=== PATIENT | male | born 1940 | race Caucasian/White ===

== ENCOUNTER 2020-10-16 10:20 | Inpatient (IN) ==
[2020-10-16] MEDS ORDERED: Artificial Tears SOLN 15 ML BOTTLE BOTH EYES PRN (12:31)
[2020-10-16] MEDS ORDERED: Naloxone 0.4 MG/ML INJ IVP PRN (12:31)
[2020-10-16] MEDS ORDERED: Vancomycin 0 MG in 0.9 % Sodium Chloride 250 ML IVPB SCH (13:00)
[2020-10-16] MEDS ORDERED: *HR* Midazolam HCl 5 MG/5 ML VIAL IVP ONE (13:00)
[2020-10-16] MEDS: FentaNYL (PF) 1,000 MCG/100 ML IV.SOLN IVC SCH (13:41)
[2020-10-16] MEDS: Midazolam HCl 50 MG/100 ML IV.SOLN IVC SCH (13:42)
[2020-10-16] MEDS: Pantoprazole 40 MG VIAL IVP SCH (13:45)
[2020-10-16] MEDS ORDERED: Vancomycin 1,250 MG/262.5 ML IV.SOLN IVPB ONE (13:46)
[2020-10-16] MEDS ORDERED: Vancomycin 1,250 MG/262.5 ML IV.SOLN IVPB SCH (14:30)
[2020-10-16 15:01] LABS: ABG Base Excess -3 mEq/L (-2 to 3); ABG HCO3 19 mEq/L (21-27); ABG Oxygen Saturation 100 % (95-98); ABG PCO2 26 mmHg (35-45); ABG PH 7.47 pH Units (7.32-7.45); ABG PO2 256 mmHg (85-104); ABG TCO2 20 mEq/L (20-26); Blood Gas Modality ASSIST CONTROL; Blood Gas VT 450 cc
[2020-10-16 15:02] LABS: Adenovirus Not Detected (Not Detect); Bordetella Pertussis Not Detected (Not Detect); Chlamydophila pneumoniae Not Detected (Not Detect); Coronavirus 229E Not Detected (Not Detect); Coronavirus HKU1 Not Detected (Not Detect); Coronavirus NL63 Not Detected (Not Detect); Coronavirus OC43 Not Detected (Not Detect); Human Metapneumovirus Not Detected (Not Detect); Human Rhinovirus/Enterovirus Not Detected (Not Detect); Influenza A Subtype 2009 H1 Not Detected (Not Detect); Influenza B Not Detected (Not Detect); Mycoplasma pneumoniae Not Detected (Not Detect); Parainfluenza Virus 1 Not Detected (Not Detect); Parainfluenza Virus 2 Not Detected (Not Detect); Parainfluenza Virus 3 Not Detected (Not Detect); Parainfluenza Virus 4 Not Detected (Not Detect); Respiratory Syncytial Virus Not Detected (Not Detect); SARS-CoV-2 Not Detected (Not Detect)
[2020-10-16] MEDS ORDERED: Albuterol 2.5 MG/3 ML NEBULIZER IH PRN (16:07)
[2020-10-16] MEDS: Artificial Tears SOLN 15 ML BOTTLE BOTH EYES SCH ×3 (17:53→23:46)
[2020-10-16] MEDS: Piperacillin/Tazobactam 3.375 GM in 0.9 % Sodium Chloride Mini Bag 100 ML IVPB SCH ×2 (17:53→23:40)
[2020-10-16] MEDS: Doxycycline 100 MG in 0.9 % Sodium Chloride Mini Bag 100 ML IVPB SCH (17:54)
[2020-10-16] MEDS: Budesonide/Formoterol 160/4.5 1 PUFF INH IH SCH (19:48)
[2020-10-16] MEDS: Chlorhexidine Rinse 15 ML MOUTHWASH MM SCH (19:58)
[2020-10-16] MEDS: Metoprolol 100 MG TABLET GTUBE SCH (21:06)
[2020-10-17 03:40] LABS: Basophils % 0.3 %; Eosinophils # 0.1 K/mcL (0.0-0.6); Eosinophils % 0.6 %; Hematocrit 40.5 % (37.5-50.1); Hemoglobin 12.9 g/dL (12.9-16.9); Immature Granulocytes % 0.4 % (0-4); Lymphocytes # 3.1 K/mcL (0.6-4.6); Lymphocytes % 19.7 %; Mean Corpuscular HGB Conc 31.9 g/dL (31.6-35.5); Mean Corpuscular Hemoglobin 30.9 pg (28.0-33.3); Mean Corpuscular Volume 96.9 fL (83.0-100.0); Mean Platelet Volume 10.1 fL (9.4-12.4); Monocytes # 2.7 K/mcL (0.0-1.3); Neutrophils # 9.8 K/mcL (1.6-8.9); Platelet Count 224 K/mcL (140-400); Red Blood Count 4.18 M/mcL (4.19-5.50); Red Cell Distribution Width 14.6 % (11.5-14.5); White Blood Count 15.7 K/mcL (4.3-11.1)
[2020-10-17 04:00] LABS: BUN/Creatinine Ratio 17 (6-26); Blood Urea Nitrogen 16 mg/dL (8-23); Calcium 7.9 mg/dL (8.6-10.3); Carbon Dioxide 18 mEq/L (23-29); Chloride 107 mEq/L (98-107); Glucose 84 mg/dL (70-105); Osmolality,Calculated 280 (280-300); Potassium 4.4 mEq/L (3.5-5.1); Sodium 135 mEq/L (136-145); eGFR For African Americans > 60 (> 60); eGFR For Non-African Americans > 60 (> 60)
[2020-10-17] MEDS: Artificial Tears SOLN 15 ML BOTTLE BOTH EYES SCH ×5 (04:02→19:53)
[2020-10-17 04:55] LABS: ABG Base Excess -3 mEq/L (-2 to 3); ABG HCO3 20 mEq/L (21-27); ABG Oxygen Saturation 99 % (95-98); ABG PCO2 30 mmHg (35-45); ABG PH 7.44 pH Units (7.32-7.45); ABG PO2 136 mmHg (85-104); ABG TCO2 21 mEq/L (20-26); Blood Gas Modality ASSIST CONTROL; Blood Gas VT 400 cc
[2020-10-17] MEDS: Doxycycline 100 MG in 0.9 % Sodium Chloride Mini Bag 100 ML IVPB SCH ×2 (05:41→16:30)
[2020-10-17] MEDS: Budesonide/Formoterol 160/4.5 1 PUFF INH IH SCH ×2 (07:36→21:24)
[2020-10-17] MEDS ORDERED: Furosemide 40 MG/4 ML VIAL IVP ONE (08:10)
[2020-10-17] MEDS: Chlorhexidine Rinse 15 ML MOUTHWASH MM SCH ×2 (08:56→19:53)
[2020-10-17] MEDS: FentaNYL (PF) 1,000 MCG/100 ML IV.SOLN IVC SCH (08:56)
[2020-10-17] MEDS: Pantoprazole 40 MG VIAL IVP SCH (08:56)
[2020-10-17] MEDS: Piperacillin/Tazobactam 3.375 GM in 0.9 % Sodium Chloride Mini Bag 100 ML IVPB SCH ×2 (08:57→16:29)
[2020-10-17] MEDS: Metoprolol 100 MG TABLET GTUBE SCH ×2 (08:58→19:53)
[2020-10-17] MEDS ORDERED: lisinopriL 20 MG TABLET GTUBE SCH (09:00)
[2020-10-17] MEDS ORDERED: *HR* Atropine Sulfate 1 MG/10 ML SYRINGE ONE (12:05)
[2020-10-17] MEDS: Midazolam HCl 50 MG/100 ML IV.SOLN IVC SCH (13:16)
[2020-10-18] MEDS: Artificial Tears SOLN 15 ML BOTTLE BOTH EYES SCH ×7 (00:08→23:20)
[2020-10-18] MEDS: Piperacillin/Tazobactam 3.375 GM in 0.9 % Sodium Chloride Mini Bag 100 ML IVPB SCH ×4 (00:08→23:20)
[2020-10-18 05:13] LABS: ABG Base Excess -5 mEq/L (-2 to 3); ABG HCO3 19 mEq/L (21-27); ABG Oxygen Saturation 100 % (95-98); ABG PCO2 32 mmHg (35-45); ABG PH 7.38 pH Units (7.32-7.45); ABG PO2 189 mmHg (85-104); ABG TCO2 20 mEq/L (20-26); Blood Gas Modality AF; Blood Gas VT 400 cc
[2020-10-18] MEDS: FentaNYL (PF) 1,000 MCG/100 ML IV.SOLN IVC SCH (05:44)
[2020-10-18] MEDS: Doxycycline 100 MG in 0.9 % Sodium Chloride Mini Bag 100 ML IVPB SCH ×2 (06:07→17:37)
[2020-10-18 06:28] LABS: Basophils % 0.4 %; Eosinophils % 0.4 %; Hematocrit 39.9 % (37.5-50.1); Hemoglobin 12.8 g/dL (12.9-16.9); Immature Granulocytes % 0.8 % (0-4); Lymphocytes # 1.3 K/mcL (0.6-4.6); Lymphocytes % 13.6 %; Mean Corpuscular HGB Conc 32.1 g/dL (31.6-35.5); Mean Corpuscular Hemoglobin 30.6 pg (28.0-33.3); Mean Corpuscular Volume 95.5 fL (83.0-100.0); Mean Platelet Volume 9.7 fL (9.4-12.4); Monocytes # 0.9 K/mcL (0.0-1.3); Monocytes % 9.4 %; Neutrophils # 6.9 K/mcL (1.6-8.9); Platelet Count 240 K/mcL (140-400); Red Blood Count 4.18 M/mcL (4.19-5.50); Red Cell Distribution Width 14.8 % (11.5-14.5); Segmented Neutrophils % 75.4 %; White Blood Count 9.2 K/mcL (4.3-11.1)
[2020-10-18 06:45] LABS: Calcium 8.3 mg/dL (8.6-10.3); Potassium 3.7 mEq/L (3.5-5.1)
[2020-10-18] MEDS: Budesonide/Formoterol 160/4.5 1 PUFF INH IH SCH ×2 (07:44→21:06)
[2020-10-18] MEDS: Chlorhexidine Rinse 15 ML MOUTHWASH MM SCH ×2 (09:16→19:47)
[2020-10-18] MEDS: Pantoprazole 40 MG VIAL IVP SCH (09:31)
[2020-10-18] MEDS: Metoprolol 100 MG TABLET GTUBE SCH ×2 (09:31→19:47)
[2020-10-18] MEDS: Phenytoin Oral Susp 100 MG/4 ML UDC GTUBE SCH ×2 (12:49→17:37)
[2020-10-18] MEDS: *HR* Heparin 5,000 UNIT/ML VIAL SQ SCH ×2 (15:43→20:49)
[2020-10-18 17:05] LABS: Appearance of Body Fluid Cloudy (Clear); Volume of Body Fluid 13 mL
[2020-10-18] MEDS: Midazolam HCl 50 MG/100 ML IV.SOLN IVC SCH (20:48)
[2020-10-18] MEDS ORDERED: Furosemide 40 MG/4 ML VIAL IVP ONE (23:53)
[2020-10-19] MEDS: Phenytoin Oral Susp 100 MG/4 ML UDC GTUBE SCH ×3 (03:09→17:27)
[2020-10-19] MEDS: Artificial Tears SOLN 15 ML BOTTLE BOTH EYES SCH ×5 (03:09→19:52)
[2020-10-19 04:44] LABS: ABG Base Excess -3 mEq/L (-2 to 3); ABG HCO3 21 mEq/L (21-27); ABG Oxygen Saturation 99 % (95-98); ABG PCO2 33 mmHg (35-45); ABG PO2 130 mmHg (85-104); ABG TCO2 22 mEq/L (20-26); Blood Gas VT 400 cc
[2020-10-19] MEDS: *HR* Heparin 5,000 UNIT/ML VIAL SQ SCH ×3 (05:14→23:05)
[2020-10-19] MEDS: Doxycycline 100 MG in 0.9 % Sodium Chloride Mini Bag 100 ML IVPB SCH ×2 (05:15→16:19)
[2020-10-19] MEDS: Piperacillin/Tazobactam 3.375 GM in 0.9 % Sodium Chloride Mini Bag 100 ML IVPB SCH ×2 (07:52→17:27)
[2020-10-19] MEDS: Chlorhexidine Rinse 15 ML MOUTHWASH MM SCH ×2 (07:53→19:51)
[2020-10-19] MEDS: Metoprolol 100 MG TABLET GTUBE SCH ×3 (07:53→19:51)
[2020-10-19] MEDS: Pantoprazole 40 MG VIAL IVP SCH (07:53)
[2020-10-19] MEDS: Budesonide/Formoterol 160/4.5 1 PUFF INH IH SCH ×2 (08:02→21:22)
[2020-10-19] MEDS: Midazolam HCl 50 MG/100 ML IV.SOLN IVC SCH (11:06)
[2020-10-19] MEDS: FentaNYL (PF) 1,000 MCG/100 ML IV.SOLN IVC SCH ×2 (11:07→18:33)
[2020-10-19 12:08] LABS: Hematocrit 39.2 % (37.5-50.1); Hemoglobin 12.8 g/dL (12.9-16.9); Mean Corpuscular HGB Conc 32.7 g/dL (31.6-35.5); Mean Corpuscular Hemoglobin 30.3 pg (28.0-33.3); Mean Corpuscular Volume 92.7 fL (83.0-100.0); Mean Platelet Volume 10.1 fL (9.4-12.4); Platelet Count 235 K/mcL (140-400); Red Blood Count 4.23 M/mcL (4.19-5.50); Red Cell Distribution Width 14.6 % (11.5-14.5); White Blood Count 9.3 K/mcL (4.3-11.1)
[2020-10-19 12:19] LABS: BUN/Creatinine Ratio 27 (6-26); Blood Urea Nitrogen 33 mg/dL (8-23); Calcium 7.9 mg/dL (8.6-10.3); Carbon Dioxide 17 mEq/L (23-29); Chloride 112 mEq/L (98-107); Glucose 119 mg/dL (70-105); Osmolality,Calculated 298 (280-300); Potassium 4.1 mEq/L (3.5-5.1); Sodium 140 mEq/L (136-145); eGFR For African Americans > 60 (> 60); eGFR For Non-African Americans 57 (> 60)
[2020-10-19] MEDS: amLODIPine 5 MG TABLET GTUBE SCH (13:10)
[2020-10-19] MEDS ORDERED: QUEtiapine Fumarate 25 MG TABLET PO SCH (21:00)
[2020-10-20] MEDS: Artificial Tears SOLN 15 ML BOTTLE BOTH EYES SCH ×7 (00:19→23:03)
[2020-10-20] MEDS: Piperacillin/Tazobactam 3.375 GM in 0.9 % Sodium Chloride Mini Bag 100 ML IVPB SCH ×4 (00:23→23:02)
[2020-10-20] MEDS: Midazolam HCl 50 MG/100 ML IV.SOLN IVC SCH (01:00)
[2020-10-20] MEDS: Phenytoin Oral Susp 100 MG/4 ML UDC GTUBE SCH ×3 (04:12→17:58)
[2020-10-20] MEDS: FentaNYL (PF) 1,000 MCG/100 ML IV.SOLN IVC SCH (04:13)
[2020-10-20 04:30] LABS: ABG Base Excess -4 mEq/L (-2 to 3); ABG HCO3 21 mEq/L (21-27); ABG Oxygen Saturation 99 % (95-98); ABG PCO2 36 mmHg (35-45); ABG PH 7.38 pH Units (7.32-7.45); ABG PO2 132 mmHg (85-104); ABG TCO2 22 mEq/L (20-26); Blood Gas Modality AF; Blood Gas VT 400 cc
[2020-10-20] MEDS: *HR* Heparin 5,000 UNIT/ML VIAL SQ SCH ×3 (06:00→21:00)
[2020-10-20] MEDS: Doxycycline 100 MG in 0.9 % Sodium Chloride Mini Bag 100 ML IVPB SCH ×2 (06:00→17:57)
[2020-10-20 06:59] LABS: VBG Ionized Calcium 1.12 mmol/L (1.15-1.35)
[2020-10-20 06:59] LABS: Basophils # 0.1 K/mcL (0.0-0.2); Basophils % 0.6 %; Eosinophils # 0.6 K/mcL (0.0-0.6); Eosinophils % 6.9 %; Hematocrit 37.7 % (37.5-50.1); Immature Granulocytes % 0.8 % (0-4); Lymphocytes # 1.7 K/mcL (0.6-4.6); Lymphocytes % 20.9 %; Mean Corpuscular HGB Conc 31.8 g/dL (31.6-35.5); Mean Corpuscular Hemoglobin 29.6 pg (28.0-33.3); Mean Corpuscular Volume 93.1 fL (83.0-100.0); Mean Platelet Volume 9.8 fL (9.4-12.4); Monocytes # 0.9 K/mcL (0.0-1.3); Monocytes % 10.3 %; Platelet Count 251 K/mcL (140-400); Red Blood Count 4.05 M/mcL (4.19-5.50); Red Cell Distribution Width 14.9 % (11.5-14.5); Segmented Neutrophils % 60.5 %; White Blood Count 8.3 K/mcL (4.3-11.1)
[2020-10-20 07:23] LABS: BUN/Creatinine Ratio 30 (6-26); Blood Urea Nitrogen 34 mg/dL (8-23); Calcium 8.1 mg/dL (8.6-10.3); Carbon Dioxide 19 mEq/L (23-29); Chloride 112 mEq/L (98-107); Glucose 134 mg/dL (70-105); Magnesium 1.7 mg/dL (1.6-2.6); Osmolality,Calculated 302 (280-300); Phosphorous 3.8 mg/dL (2.7-4.5); Potassium 2.9 mEq/L (3.5-5.1); Sodium 141 mEq/L (136-145); eGFR For African Americans > 60 (> 60); eGFR For Non-African Americans > 60 (> 60)
[2020-10-20] MEDS: Budesonide/Formoterol 160/4.5 1 PUFF INH IH SCH ×2 (07:45→21:19)
[2020-10-20] MEDS: Chlorhexidine Rinse 15 ML MOUTHWASH MM SCH ×2 (08:54→20:01)
[2020-10-20] MEDS: amLODIPine 5 MG TABLET GTUBE SCH (08:54)
[2020-10-20] MEDS: Pantoprazole 40 MG VIAL IVP SCH (08:54)
[2020-10-20] MEDS: Metoprolol 100 MG TABLET GTUBE SCH ×2 (09:00→20:01)
[2020-10-20] MEDS: Potassium Chloride Elixir 20 MEQ/15 ML UDC GTUBE SCH ×2 (15:50→20:04)
[2020-10-20] MEDS: Haloperidol Oral Conc 10 MG/5 ML UDC GTUBE SCH ×2 (15:50→20:02)
[2020-10-20] MEDS: Furosemide 20 MG/2 ML VIAL IVP SCH (15:52)
[2020-10-20] MEDS: Aspirin 81 MG TAB.CHEW PO SCH (15:55)
[2020-10-20] MEDS: Nystatin SUSP 5 ML UD.LIQ PO SCH (21:00)
[2020-10-21] MEDS: Phenytoin Oral Susp 100 MG/4 ML UDC GTUBE SCH ×4 (02:02→19:43)
[2020-10-21] MEDS: Artificial Tears SOLN 15 ML BOTTLE BOTH EYES SCH ×6 (03:05→23:43)
[2020-10-21 04:14] LABS: ABG Base Excess -4 mEq/L (-2 to 3); ABG HCO3 21 mEq/L (21-27); ABG Oxygen Saturation 98 % (95-98); ABG PCO2 35 mmHg (35-45); ABG PH 7.38 pH Units (7.32-7.45); ABG PO2 105 mmHg (85-104); ABG TCO2 22 mEq/L (20-26); Blood Gas Modality AF; Blood Gas VT 400 cc
[2020-10-21 04:16] LABS: Hematocrit 35.2 % (37.5-50.1); Hemoglobin 11.2 g/dL (12.9-16.9); Mean Corpuscular HGB Conc 31.8 g/dL (31.6-35.5); Mean Corpuscular Hemoglobin 30.9 pg (28.0-33.3); Mean Platelet Volume 10.4 fL (9.4-12.4); Platelet Count 220 K/mcL (140-400); Red Blood Count 3.63 M/mcL (4.19-5.50); Red Cell Distribution Width 15.3 % (11.5-14.5); White Blood Count 8.8 K/mcL (4.3-11.1)
[2020-10-21 04:43] LABS: BUN/Creatinine Ratio 34 (6-26); Blood Urea Nitrogen 40 mg/dL (8-23); Calcium 7.8 mg/dL (8.6-10.3); Carbon Dioxide 19 mEq/L (23-29); Chloride 119 mEq/L (98-107); Glucose 154 mg/dL (70-105); Magnesium 1.6 mg/dL (1.6-2.6); Osmolality,Calculated 313 (280-300); Potassium 4.1 mEq/L (3.5-5.1); Sodium 145 mEq/L (136-145); eGFR For African Americans > 60 (> 60); eGFR For Non-African Americans > 60 (> 60)
[2020-10-21] MEDS: Doxycycline 100 MG in 0.9 % Sodium Chloride Mini Bag 100 ML IVPB SCH (05:00)
[2020-10-21] MEDS: *HR* Heparin 5,000 UNIT/ML VIAL SQ SCH ×3 (05:00→20:44)
[2020-10-21] MEDS: Aspirin 81 MG TAB.CHEW PO SCH (08:48)
[2020-10-21] MEDS: Chlorhexidine Rinse 15 ML MOUTHWASH MM SCH ×2 (08:48→20:43)
[2020-10-21] MEDS: Potassium Chloride Elixir 20 MEQ/15 ML UDC GTUBE SCH ×2 (08:49→20:45)
[2020-10-21] MEDS: Pantoprazole 40 MG VIAL IVP SCH (08:50)
[2020-10-21] MEDS: Metoprolol 100 MG TABLET GTUBE SCH ×2 (08:50→20:44)
[2020-10-21] MEDS: Furosemide 20 MG/2 ML VIAL IVP SCH (08:51)
[2020-10-21] MEDS: Haloperidol Oral Conc 10 MG/5 ML UDC GTUBE SCH (08:51)
[2020-10-21] MEDS: Piperacillin/Tazobactam 3.375 GM in 0.9 % Sodium Chloride Mini Bag 100 ML IVPB SCH ×3 (08:51→23:43)
[2020-10-21] MEDS: Nystatin SUSP 5 ML UD.LIQ PO SCH ×4 (08:51→20:42)
[2020-10-21] MEDS: Budesonide/Formoterol 160/4.5 1 PUFF INH IH SCH ×2 (10:47→20:11)
[2020-10-21] MEDS: amLODIPine 5 MG TABLET GTUBE SCH (12:51)
[2020-10-21] MEDS: Midazolam HCl 50 MG/100 ML IV.SOLN IVC SCH (19:43)
[2020-10-21] MEDS: FentaNYL (PF) 1,000 MCG/100 ML IV.SOLN IVC SCH (19:43)
[2020-10-22] MEDS: Phenytoin Oral Susp 100 MG/4 ML UDC GTUBE SCH ×3 (03:33→20:03)
[2020-10-22] MEDS: Artificial Tears SOLN 15 ML BOTTLE BOTH EYES SCH ×6 (03:34→23:54)
[2020-10-22 04:59] LABS: ABG Base Excess -5 mEq/L (-2 to 3); ABG HCO3 21 mEq/L (21-27); ABG Oxygen Saturation 98 % (95-98); ABG PCO2 40 mmHg (35-45); ABG PH 7.32 pH Units (7.32-7.45); ABG PO2 117 mmHg (85-104); ABG TCO2 22 mEq/L (20-26); Blood Gas VT 400 cc
[2020-10-22 05:12] LABS: Basophils % 0.5 %
[2020-10-22 05:14] LABS: Basophils # 0.1 K/mcL (0.0-0.2); Eosinophils # 0.8 K/mcL (0.0-0.6); Eosinophils % 5.1 %; Hemoglobin 13.6 g/dL (12.9-16.9); Immature Granulocytes % 0.5 % (0-4); Immature Platelets 4.4 % (1.1-6.1); Lymphocytes # 2.7 K/mcL (0.6-4.6); Lymphocytes % 17.6 %; Mean Corpuscular HGB Conc 31.6 g/dL (31.6-35.5); Mean Corpuscular Hemoglobin 29.9 pg (28.0-33.3); Mean Corpuscular Volume 94.5 fL (83.0-100.0); Mean Platelet Volume 11.2 fL (9.4-12.4); Monocytes # 1.5 K/mcL (0.0-1.3); Monocytes % 9.9 %; Neutrophils # 10.2 K/mcL (1.6-8.9); Platelet Count 141 K/mcL (140-400); Red Blood Count 4.55 M/mcL (4.19-5.50); Red Cell Distribution Width 15.9 % (11.5-14.5); Segmented Neutrophils % 66.4 %; White Blood Count 15.4 K/mcL (4.3-11.1)
[2020-10-22] MEDS: *HR* Heparin 5,000 UNIT/ML VIAL SQ SCH ×3 (05:19→21:23)
[2020-10-22] MEDS: Budesonide/Formoterol 160/4.5 1 PUFF INH IH SCH ×2 (07:00→19:44)
[2020-10-22] MEDS: Chlorhexidine Rinse 15 ML MOUTHWASH MM SCH ×2 (08:13→20:03)
[2020-10-22] MEDS: Piperacillin/Tazobactam 3.375 GM in 0.9 % Sodium Chloride Mini Bag 100 ML IVPB SCH ×3 (08:13→23:54)
[2020-10-22] MEDS: Pantoprazole 40 MG VIAL IVP SCH (08:15)
[2020-10-22] MEDS: Nystatin SUSP 5 ML UD.LIQ PO SCH ×4 (08:16→20:03)
[2020-10-22] MEDS: Furosemide 20 MG/2 ML VIAL IVP SCH (08:16)
[2020-10-22] MEDS: amLODIPine 5 MG TABLET GTUBE SCH (08:17)
[2020-10-22] MEDS: Metoprolol 100 MG TABLET GTUBE SCH ×2 (08:17→20:03)
[2020-10-22] MEDS: Aspirin 81 MG TAB.CHEW PO SCH (08:17)
[2020-10-22] MEDS: Potassium Chloride Elixir 20 MEQ/15 ML UDC GTUBE SCH ×3 (08:18→20:05)
[2020-10-22 08:23] LABS: BUN/Creatinine Ratio 36 (6-26); Blood Urea Nitrogen 43 mg/dL (8-23); Calcium 8.8 mg/dL (8.6-10.3); Carbon Dioxide 20 mEq/L (23-29); Chloride 118 mEq/L (98-107); Glucose 144 mg/dL (70-105); Osmolality,Calculated 315 (280-300); Potassium 4.5 mEq/L (3.5-5.1); Sodium 146 mEq/L (136-145); eGFR For African Americans > 60 (> 60); eGFR For Non-African Americans 58 (> 60)
[2020-10-22] MEDS: Midazolam HCl 50 MG/100 ML IV.SOLN IVC SCH (11:16)
[2020-10-23] MEDS: Phenytoin Oral Susp 100 MG/4 ML UDC GTUBE SCH ×3 (03:22→17:44)
[2020-10-23] MEDS: Artificial Tears SOLN 15 ML BOTTLE BOTH EYES SCH ×3 (03:22→09:02)
[2020-10-23 05:11] LABS: VBG Ionized Calcium 1.04 mmol/L (1.15-1.35)
[2020-10-23 05:30] LABS: BUN/Creatinine Ratio 42 (6-26); Blood Urea Nitrogen 47 mg/dL (8-23); Calcium 9.1 mg/dL (8.6-10.3); Carbon Dioxide 21 mEq/L (23-29); Chloride 121 mEq/L (98-107); Glucose 146 mg/dL (70-105); Magnesium 1.6 mg/dL (1.6-2.6); Osmolality,Calculated 325 (280-300); Phosphorous 2.8 mg/dL (2.7-4.5); Potassium 4.8 mEq/L (3.5-5.1); Sodium 150 mEq/L (136-145); eGFR For African Americans > 60 (> 60); eGFR For Non-African Americans > 60 (> 60)
[2020-10-23] MEDS: *HR* Heparin 5,000 UNIT/ML VIAL SQ SCH (05:42)
[2020-10-23] MEDS ORDERED: Calcium Gluconate 1gm/50mL 1 GM/50 ML BAG IVPB PRN (06:35)
[2020-10-23 06:40] LABS: Basophils # 0.1 K/mcL (0.0-0.2); Basophils % 0.5 %; Eosinophils # 0.2 K/mcL (0.0-0.6); Eosinophils % 1.4 %; Hematocrit 46.3 % (37.5-50.1); Hemoglobin 14.1 g/dL (12.9-16.9); Immature Granulocytes % 0.6 % (0-4); Lymphocytes # 2.3 K/mcL (0.6-4.6); Lymphocytes % 16.1 %; Mean Corpuscular HGB Conc 30.5 g/dL (31.6-35.5); Mean Corpuscular Hemoglobin 30.1 pg (28.0-33.3); Mean Corpuscular Volume 98.7 fL (83.0-100.0); Mean Platelet Volume 10.9 fL (9.4-12.4); Monocytes # 1.2 K/mcL (0.0-1.3); Monocytes % 8.3 %; Neutrophils # 10.6 K/mcL (1.6-8.9); Nucleated Red Blood Cells 0.1 /100 WBC (0); Platelet Count 254 K/mcL (140-400); Red Blood Count 4.69 M/mcL (4.19-5.50); Segmented Neutrophils % 73.1 %; White Blood Count 14.5 K/mcL (4.3-11.1)
[2020-10-23] MEDS: Chlorhexidine Rinse 15 ML MOUTHWASH MM SCH (07:30)
[2020-10-23] MEDS: Piperacillin/Tazobactam 3.375 GM in 0.9 % Sodium Chloride Mini Bag 100 ML IVPB SCH (07:35)
[2020-10-23] MEDS: amLODIPine 5 MG TABLET GTUBE SCH (07:36)
[2020-10-23] MEDS: Aspirin 81 MG TAB.CHEW PO SCH (07:36)
[2020-10-23] MEDS: Metoprolol 100 MG TABLET GTUBE SCH ×2 (07:36→22:00)
[2020-10-23] MEDS: Nystatin SUSP 5 ML UD.LIQ PO SCH ×2 (07:36→12:41)
[2020-10-23] MEDS: Pantoprazole 40 MG VIAL IVP SCH (07:37)
[2020-10-23] MEDS: Furosemide 20 MG/2 ML VIAL IVP SCH (07:37)
[2020-10-23] MEDS: Potassium Chloride Elixir 20 MEQ/15 ML UDC GTUBE SCH (07:38)
[2020-10-23] MEDS: Budesonide/Formoterol 160/4.5 1 PUFF INH IH SCH (08:24)
[2020-10-23] MEDS: Midazolam HCl 50 MG/100 ML IV.SOLN IVC SCH (09:02)
[2020-10-23] MEDS ORDERED: Naloxone 0.4 MG/ML INJ IVP PRN (13:48)
[2020-10-23] MEDS ORDERED: Piperacillin/Tazobactam 3.375 GM in 0.9 % Sodium Chloride Mini Bag 100 ML IVPB SCH (16:00)
[2020-10-23] MEDS: Budesonide Neb 0.5 MG/2 ML IH SCH (20:19)
[2020-10-23] MEDS: Albuterol 2.5 MG/3 ML NEBULIZER IH PRN (20:19)
[2020-10-23] MEDS ORDERED: Budesonide Neb 0.5 MG/2 ML IH SCH (22:00)
[2020-10-24 02:52] LABS: Basophils % 0.4 %; Eosinophils # 0.1 K/mcL (0.0-0.6); Hematocrit 45.6 % (37.5-50.1); Hemoglobin 14.3 g/dL (12.9-16.9); Immature Granulocytes % 0.5 % (0-4); Lymphocytes # 1.5 K/mcL (0.6-4.6); Lymphocytes % 14.3 %; Mean Corpuscular HGB Conc 31.4 g/dL (31.6-35.5); Mean Corpuscular Hemoglobin 30.5 pg (28.0-33.3); Mean Corpuscular Volume 97.2 fL (83.0-100.0); Mean Platelet Volume 10.7 fL (9.4-12.4); Monocytes # 0.8 K/mcL (0.0-1.3); Monocytes % 7.4 %; Platelet Count 283 K/mcL (140-400); Red Blood Count 4.69 M/mcL (4.19-5.50); Segmented Neutrophils % 76.4 %; White Blood Count 10.5 K/mcL (4.3-11.1)
[2020-10-24 03:12] LABS: Alanine Aminotransferase 12 Units/L (7-52); Albumin 2.8 g/dL (3.5-5.7); Albumin/Globulin Ratio 0.7 (1.1-2.2); Alkaline Phosphatase 110 Units/L (34-104); Aspartate Amino Transferase 17 Units/L (13-39); BUN/Creatinine Ratio 46 (6-26); Bilirubin,Total 0.4 mg/dL (0.3-1.0); Blood Urea Nitrogen 58 mg/dL (8-23); Calcium 9.1 mg/dL (8.6-10.3); Carbon Dioxide 24 mEq/L (23-29); Chloride 119 mEq/L (98-107); Globulin 4.2 g/dL (2.4-3.5); Glucose 120 mg/dL (70-105); Magnesium 1.7 mg/dL (1.6-2.6); Osmolality,Calculated 331 (280-300); Phosphorous 2.9 mg/dL (2.7-4.5); Potassium 4.4 mEq/L (3.5-5.1); Sodium 152 mEq/L (136-145); eGFR For African Americans > 60 (> 60); eGFR For Non-African Americans 56 (> 60)
[2020-10-24 03:25] LABS: VBG Ionized Calcium 1.12 mmol/L (1.15-1.35)
[2020-10-24] MEDS: Piperacillin/Tazobactam 3.375 GM in 0.9 % Sodium Chloride Mini Bag 100 ML IVPB SCH ×3 (04:27→21:26)
[2020-10-24] MEDS: Phenytoin Oral Susp 100 MG/4 ML UDC GTUBE SCH ×3 (04:27→18:29)
[2020-10-24] MEDS: Budesonide Neb 0.5 MG/2 ML IH SCH ×2 (07:40→20:06)
[2020-10-24] MEDS: Aspirin 81 MG TAB.CHEW PO SCH (09:57)
[2020-10-24] MEDS: *HR* Rivaroxaban 10 MG TABLET PO SCH (09:57)
[2020-10-24] MEDS: amLODIPine 5 MG TABLET GTUBE SCH (09:57)
[2020-10-24] MEDS: Metoprolol 100 MG TABLET GTUBE SCH ×2 (09:58→21:28)
[2020-10-24] MEDS: D5% in 0.2% NACL 500 ML IVC SCH ×3 (10:55→21:27)
[2020-10-24 12:31] LABS: BUN/Creatinine Ratio 52 (6-26); Blood Urea Nitrogen 58 mg/dL (8-23); Calcium 8.3 mg/dL (8.6-10.3); Carbon Dioxide 21 mEq/L (23-29); Chloride 119 mEq/L (98-107); Glucose 147 mg/dL (70-105); Osmolality,Calculated 325 (280-300); Potassium 4.4 mEq/L (3.5-5.1); Sodium 148 mEq/L (136-145); eGFR For African Americans > 60 (> 60); eGFR For Non-African Americans > 60 (> 60)
[2020-10-24] MEDS ORDERED: levoFLOXacin 750 MG/150 ML 750 MG/150 ML BAG IVPB SCH (18:00)
[2020-10-24] MEDS: Lactobacillus 1 EACH CAP.SPRINK GTUBE SCH (21:28)
[2020-10-25] MEDS: Piperacillin/Tazobactam 3.375 GM in 0.9 % Sodium Chloride Mini Bag 100 ML IVPB SCH (04:17)
[2020-10-25] MEDS: Phenytoin Oral Susp 100 MG/4 ML UDC GTUBE SCH ×3 (04:17→18:54)
[2020-10-25 05:13] LABS: Basophils % 0.3 %; Eosinophils # 0.5 K/mcL (0.0-0.6); Hematocrit 37.6 % (37.5-50.1); Immature Granulocytes % 0.3 % (0-4); Lymphocytes # 1.8 K/mcL (0.6-4.6); Mean Corpuscular HGB Conc 31.4 g/dL (31.6-35.5); Mean Corpuscular Hemoglobin 29.8 pg (28.0-33.3); Mean Corpuscular Volume 94.9 fL (83.0-100.0); Monocytes # 0.8 K/mcL (0.0-1.3); Monocytes % 8.1 %; Neutrophils # 6.4 K/mcL (1.6-8.9); Platelet Count 214 K/mcL (140-400); Red Blood Count 3.96 M/mcL (4.19-5.50); Red Cell Distribution Width 15.7 % (11.5-14.5); Segmented Neutrophils % 67.3 %; White Blood Count 9.5 K/mcL (4.3-11.1)
[2020-10-25 05:18] LABS: Hemoglobin 11.8 g/dL (12.9-16.9)
[2020-10-25 05:25] LABS: BUN/Creatinine Ratio 50 (6-26); Blood Urea Nitrogen 49 mg/dL (8-23); Carbon Dioxide 21 mEq/L (23-29); Chloride 117 mEq/L (98-107); Glucose 93 mg/dL (70-105); Magnesium 1.6 mg/dL (1.6-2.6); Osmolality,Calculated 317 (280-300); Phosphorous 2.7 mg/dL (2.7-4.5); Sodium 147 mEq/L (136-145); eGFR For African Americans > 60 (> 60); eGFR For Non-African Americans > 60 (> 60)
[2020-10-25 05:37] LABS: Thyroid Stimulating Hormone 0.366 mcIU/mL (0.340-5.600)
[2020-10-25] MEDS ORDERED: D5% in 0.2% NACL 500 ML IVC SCH (08:00)
[2020-10-25] MEDS: *HR* Rivaroxaban 10 MG TABLET PO SCH (09:41)
[2020-10-25] MEDS: Metoprolol 100 MG TABLET GTUBE SCH ×2 (09:42→22:20)
[2020-10-25] MEDS: Lactobacillus 1 EACH CAP.SPRINK GTUBE SCH ×2 (09:42→22:20)
[2020-10-25] MEDS: Aspirin 81 MG TAB.CHEW PO SCH (09:42)
[2020-10-25] MEDS: amLODIPine 5 MG TABLET GTUBE SCH (09:43)
[2020-10-25] MEDS: Budesonide Neb 0.5 MG/2 ML IH SCH ×2 (10:23→20:21)
[2020-10-25] MEDS ORDERED: E-Z-PAQUE (BARIUM SULF) SUSP 1 BOTTLE PO ONE (11:18)
[2020-10-25] MEDS ORDERED: E-Z-HD (BARIUM SULF) SUSPENSION PO ONE (11:18)
[2020-10-25 11:50] LABS: BUN/Creatinine Ratio 49 (6-26); Blood Urea Nitrogen 47 mg/dL (8-23); Calcium 7.9 mg/dL (8.6-10.3); Carbon Dioxide 23 mEq/L (23-29); Chloride 116 mEq/L (98-107); Glucose 132 mg/dL (70-105); Osmolality,Calculated 316 (280-300); Potassium 3.8 mEq/L (3.5-5.1); Sodium 146 mEq/L (136-145); eGFR For African Americans > 60 (> 60); eGFR For Non-African Americans > 60 (> 60)
[2020-10-25 21:34] LABS: BUN/Creatinine Ratio 46 (6-26); Blood Urea Nitrogen 45 mg/dL (8-23); Calcium 7.9 mg/dL (8.6-10.3); Carbon Dioxide 23 mEq/L (23-29); Chloride 116 mEq/L (98-107); Glucose 122 mg/dL (70-105); Osmolality,Calculated 309 (280-300); Potassium 3.7 mEq/L (3.5-5.1); Sodium 143 mEq/L (136-145); eGFR For African Americans > 60 (> 60); eGFR For Non-African Americans > 60 (> 60)
[2020-10-26] MEDS: Phenytoin Oral Susp 100 MG/4 ML UDC GTUBE SCH ×3 (03:52→18:12)
[2020-10-26 04:30] LABS: Basophils % 0.3 %; Eosinophils # 0.6 K/mcL (0.0-0.6); Eosinophils % 6.2 %; Hematocrit 36.3 % (37.5-50.1); Hemoglobin 11.2 g/dL (12.9-16.9); Immature Granulocytes % 0.5 % (0-4); Lymphocytes # 1.9 K/mcL (0.6-4.6); Lymphocytes % 20.9 %; Mean Corpuscular HGB Conc 30.9 g/dL (31.6-35.5); Mean Corpuscular Hemoglobin 29.9 pg (28.0-33.3); Mean Corpuscular Volume 96.8 fL (83.0-100.0); Monocytes # 0.7 K/mcL (0.0-1.3); Platelet Count 197 K/mcL (140-400); Red Blood Count 3.75 M/mcL (4.19-5.50); Red Cell Distribution Width 15.4 % (11.5-14.5); Segmented Neutrophils % 65.1 %; White Blood Count 9.2 K/mcL (4.3-11.1)
[2020-10-26 04:44] LABS: BUN/Creatinine Ratio 44 (6-26); Blood Urea Nitrogen 43 mg/dL (8-23); Calcium 8.2 mg/dL (8.6-10.3); Carbon Dioxide 22 mEq/L (23-29); Chloride 115 mEq/L (98-107); Glucose 93 mg/dL (70-105); Magnesium 1.6 mg/dL (1.6-2.6); Osmolality,Calculated 307 (280-300); Potassium 3.7 mEq/L (3.5-5.1); Sodium 143 mEq/L (136-145); eGFR For African Americans > 60 (> 60); eGFR For Non-African Americans > 60 (> 60)
[2020-10-26] MEDS: Budesonide Neb 0.5 MG/2 ML IH SCH ×2 (09:58→20:40)
[2020-10-26] MEDS: Aspirin 81 MG TAB.CHEW PO SCH (10:03)
[2020-10-26] MEDS: amLODIPine 5 MG TABLET GTUBE SCH (10:03)
[2020-10-26] MEDS: *HR* Rivaroxaban 10 MG TABLET PO SCH (10:04)
[2020-10-26] MEDS: Metoprolol 100 MG TABLET GTUBE SCH ×2 (10:04→20:57)
[2020-10-26] MEDS: Lactobacillus 1 EACH CAP.SPRINK GTUBE SCH ×2 (10:04→20:59)
[2020-10-27] MEDS: Phenytoin Oral Susp 100 MG/4 ML UDC GTUBE SCH ×3 (02:48→18:36)
[2020-10-27] MEDS: Budesonide Neb 0.5 MG/2 ML IH SCH ×2 (09:11→19:43)
[2020-10-27 09:46] LABS: Basophils % 0.3 %; Eosinophils # 0.4 K/mcL (0.0-0.6); Eosinophils % 5.5 %; Hematocrit 34.8 % (37.5-50.1); Hemoglobin 11.2 g/dL (12.9-16.9); Immature Granulocytes % 0.3 % (0-4); Lymphocytes # 1.4 K/mcL (0.6-4.6); Lymphocytes % 21.1 %; Mean Corpuscular HGB Conc 32.2 g/dL (31.6-35.5); Mean Corpuscular Hemoglobin 30.9 pg (28.0-33.3); Mean Corpuscular Volume 96.1 fL (83.0-100.0); Mean Platelet Volume 11.3 fL (9.4-12.4); Monocytes # 0.4 K/mcL (0.0-1.3); Monocytes % 6.8 %; Neutrophils # 4.3 K/mcL (1.6-8.9); Platelet Count 189 K/mcL (140-400); Red Blood Count 3.62 M/mcL (4.19-5.50); Red Cell Distribution Width 14.9 % (11.5-14.5); White Blood Count 6.5 K/mcL (4.3-11.1)
[2020-10-27] MEDS: *HR* Rivaroxaban 10 MG TABLET PO SCH (10:04)
[2020-10-27] MEDS: Lactobacillus 1 EACH CAP.SPRINK GTUBE SCH ×2 (10:04→23:33)
[2020-10-27] MEDS: Metoprolol 100 MG TABLET GTUBE SCH ×2 (10:04→23:33)
[2020-10-27] MEDS: Aspirin 81 MG TAB.CHEW PO SCH (10:04)
[2020-10-27 10:05] LABS: BUN/Creatinine Ratio 43 (6-26); Blood Urea Nitrogen 32 mg/dL (8-23); Carbon Dioxide 22 mEq/L (23-29); Chloride 110 mEq/L (98-107); Glucose 99 mg/dL (70-105); Magnesium 1.6 mg/dL (1.6-2.6); Osmolality,Calculated 293 (280-300); Phosphorous 3.1 mg/dL (2.7-4.5); Potassium 3.5 mEq/L (3.5-5.1); Sodium 138 mEq/L (136-145); eGFR For African Americans > 60 (> 60); eGFR For Non-African Americans > 60 (> 60)
[2020-10-27] MEDS: amLODIPine 5 MG TABLET GTUBE SCH (10:05)
[2020-10-28] MEDS: Phenytoin Oral Susp 100 MG/4 ML UDC GTUBE SCH ×3 (04:17→20:31)
[2020-10-28 06:07] LABS: Basophils % 0.3 %; Eosinophils # 0.3 K/mcL (0.0-0.6); Hematocrit 34.2 % (37.5-50.1); Hemoglobin 11.2 g/dL (12.9-16.9); Immature Granulocytes % 0.4 % (0-4); Lymphocytes # 1.4 K/mcL (0.6-4.6); Mean Corpuscular HGB Conc 32.7 g/dL (31.6-35.5); Mean Corpuscular Hemoglobin 31.1 pg (28.0-33.3); Mean Platelet Volume 11.3 fL (9.4-12.4); Monocytes # 0.5 K/mcL (0.0-1.3); Monocytes % 6.3 %; Neutrophils # 5.6 K/mcL (1.6-8.9); Platelet Count 235 K/mcL (140-400); Red Cell Distribution Width 14.7 % (11.5-14.5); White Blood Count 7.8 K/mcL (4.3-11.1)
[2020-10-28 06:26] LABS: BUN/Creatinine Ratio 33 (6-26); Blood Urea Nitrogen 26 mg/dL (8-23); Calcium 8.2 mg/dL (8.6-10.3); Carbon Dioxide 22 mEq/L (23-29); Chloride 109 mEq/L (98-107); Glucose 98 mg/dL (70-105); Magnesium 1.7 mg/dL (1.6-2.6); Osmolality,Calculated 289 (280-300); Potassium 3.5 mEq/L (3.5-5.1); Sodium 137 mEq/L (136-145); eGFR For African Americans > 60 (> 60); eGFR For Non-African Americans > 60 (> 60)
[2020-10-28] MEDS: Aspirin 81 MG TAB.CHEW PO SCH (10:23)
[2020-10-28] MEDS: Lactobacillus 1 EACH CAP.SPRINK GTUBE SCH ×2 (10:23→20:32)
[2020-10-28] MEDS: Metoprolol 100 MG TABLET GTUBE SCH ×2 (10:24→20:32)
[2020-10-28] MEDS: *HR* Rivaroxaban 10 MG TABLET PO SCH (10:27)
[2020-10-28] MEDS: amLODIPine 5 MG TABLET GTUBE SCH (10:27)
[2020-10-28] MEDS: Budesonide Neb 0.5 MG/2 ML IH SCH ×2 (11:14→22:25)
[2020-10-29] MEDS: Phenytoin Oral Susp 100 MG/4 ML UDC GTUBE SCH ×3 (03:35→20:38)
[2020-10-29 06:32] LABS: Basophils % 0.1 %; Eosinophils # 0.2 K/mcL (0.0-0.6); Eosinophils % 2.6 %; Hematocrit 37.2 % (37.5-50.1); Immature Granulocytes % 0.4 % (0-4); Lymphocytes # 1.2 K/mcL (0.6-4.6); Lymphocytes % 15.8 %; Mean Corpuscular HGB Conc 32.3 g/dL (31.6-35.5); Mean Corpuscular Hemoglobin 30.5 pg (28.0-33.3); Mean Corpuscular Volume 94.4 fL (83.0-100.0); Mean Platelet Volume 11.3 fL (9.4-12.4); Monocytes # 0.5 K/mcL (0.0-1.3); Monocytes % 7.2 %; Neutrophils # 5.4 K/mcL (1.6-8.9); Platelet Count 257 K/mcL (140-400); Red Blood Count 3.94 M/mcL (4.19-5.50); Red Cell Distribution Width 14.6 % (11.5-14.5); Segmented Neutrophils % 73.9 %; White Blood Count 7.3 K/mcL (4.3-11.1)
[2020-10-29 06:46] LABS: BUN/Creatinine Ratio 28 (6-26); Blood Urea Nitrogen 19 mg/dL (8-23); Calcium 8.4 mg/dL (8.6-10.3); Carbon Dioxide 20 mEq/L (23-29); Chloride 108 mEq/L (98-107); Glucose 74 mg/dL (70-105); Magnesium 1.7 mg/dL (1.6-2.6); Osmolality,Calculated 285 (280-300); Potassium 3.3 mEq/L (3.5-5.1); Sodium 137 mEq/L (136-145); eGFR For African Americans > 60 (> 60); eGFR For Non-African Americans > 60 (> 60)
[2020-10-29] MEDS: Budesonide Neb 0.5 MG/2 ML IH SCH ×2 (07:29→22:31)
[2020-10-29] MEDS ORDERED: Potassium Chloride Elixir 20 MEQ/15 ML UDC GTUBE ONE (07:39)
[2020-10-29] MEDS: amLODIPine 5 MG TABLET GTUBE SCH (11:08)
[2020-10-29] MEDS: Aspirin 81 MG TAB.CHEW PO SCH (11:08)
[2020-10-29] MEDS: *HR* Rivaroxaban 10 MG TABLET PO SCH (11:08)
[2020-10-29] MEDS: Lactobacillus 1 EACH CAP.SPRINK GTUBE SCH ×2 (11:09→20:38)
[2020-10-29] MEDS: Metoprolol 100 MG TABLET GTUBE SCH ×2 (11:09→20:38)
[2020-10-29] MEDS: Aspirin 81 MG TAB.CHEW GTUBE SCH (14:12)
[2020-10-29] MEDS: *HR* Rivaroxaban 10 MG TABLET GTUBE SCH (14:12)
[2020-10-29] MEDS: Nicotine 14 MG PATCH.TD24 TD SCH (14:56)
[2020-10-30] MEDS: Phenytoin Oral Susp 100 MG/4 ML UDC GTUBE SCH ×4 (03:12→20:33)
[2020-10-30 04:38] LABS: BUN/Creatinine Ratio 23 (6-26); Blood Urea Nitrogen 16 mg/dL (8-23); Calcium 8.2 mg/dL (8.6-10.3); Carbon Dioxide 21 mEq/L (23-29); Chloride 109 mEq/L (98-107); Glucose 95 mg/dL (70-105); Magnesium 1.7 mg/dL (1.6-2.6); Osmolality,Calculated 283 (280-300); Sodium 136 mEq/L (136-145); eGFR For African Americans > 60 (> 60); eGFR For Non-African Americans > 60 (> 60)
[2020-10-30 04:45] LABS: Basophils % 0.3 %; Eosinophils # 0.3 K/mcL (0.0-0.6); Eosinophils % 3.4 %; Hematocrit 37.2 % (37.5-50.1); Immature Granulocytes % 0.5 % (0-4); Lymphocytes # 1.3 K/mcL (0.6-4.6); Lymphocytes % 16.8 %; Mean Corpuscular HGB Conc 32.3 g/dL (31.6-35.5); Mean Corpuscular Hemoglobin 30.3 pg (28.0-33.3); Mean Corpuscular Volume 93.9 fL (83.0-100.0); Mean Platelet Volume 10.8 fL (9.4-12.4); Monocytes # 0.6 K/mcL (0.0-1.3); Monocytes % 8.1 %; Neutrophils # 5.4 K/mcL (1.6-8.9); Platelet Count 283 K/mcL (140-400); Red Blood Count 3.96 M/mcL (4.19-5.50); Red Cell Distribution Width 14.8 % (11.5-14.5); Segmented Neutrophils % 70.9 %; White Blood Count 7.6 K/mcL (4.3-11.1)
[2020-10-30] MEDS: Budesonide Neb 0.5 MG/2 ML IH SCH ×2 (07:36→19:58)
[2020-10-30] MEDS: *HR* Rivaroxaban 10 MG TABLET GTUBE SCH (08:56)
[2020-10-30] MEDS: Metoprolol 100 MG TABLET GTUBE SCH ×2 (08:57→20:32)
[2020-10-30] MEDS: amLODIPine 5 MG TABLET GTUBE SCH (08:57)
[2020-10-30] MEDS: Lactobacillus 1 EACH CAP.SPRINK GTUBE SCH ×2 (08:58→20:33)
[2020-10-30] MEDS: Nicotine 14 MG PATCH.TD24 TD SCH (08:58)
[2020-10-30] MEDS: Aspirin 81 MG TAB.CHEW GTUBE SCH (08:58)
[2020-10-31] MEDS: Phenytoin Oral Susp 100 MG/4 ML UDC GTUBE SCH ×4 (03:40→20:53)
[2020-10-31 05:24] LABS: White Blood Count 6.9 K/mcL (4.3-11.1)
[2020-10-31 05:25] LABS: Basophils % 0.4 %; Eosinophils # 0.3 K/mcL (0.0-0.6); Eosinophils % 4.1 %; Hematocrit 35.3 % (37.5-50.1); Hemoglobin 11.5 g/dL (12.9-16.9); Immature Granulocytes % 0.6 % (0-4); Lymphocytes # 1.3 K/mcL (0.6-4.6); Lymphocytes % 18.3 %; Mean Corpuscular HGB Conc 32.6 g/dL (31.6-35.5); Mean Corpuscular Hemoglobin 30.4 pg (28.0-33.3); Mean Corpuscular Volume 93.4 fL (83.0-100.0); Mean Platelet Volume 10.3 fL (9.4-12.4); Monocytes # 0.6 K/mcL (0.0-1.3); Monocytes % 8.1 %; Neutrophils # 4.7 K/mcL (1.6-8.9); Platelet Count 285 K/mcL (140-400); Red Blood Count 3.78 M/mcL (4.19-5.50); Red Cell Distribution Width 15.3 % (11.5-14.5); Segmented Neutrophils % 68.5 %
[2020-10-31 05:44] LABS: BUN/Creatinine Ratio 26 (6-26); Blood Urea Nitrogen 16 mg/dL (8-23); Calcium 7.6 mg/dL (8.6-10.3); Carbon Dioxide 22 mEq/L (23-29); Chloride 109 mEq/L (98-107); Glucose 93 mg/dL (70-105); Magnesium 1.8 mg/dL (1.6-2.6); Osmolality,Calculated 285 (280-300); Potassium 3.9 mEq/L (3.5-5.1); Sodium 137 mEq/L (136-145); eGFR For African Americans > 60 (> 60); eGFR For Non-African Americans > 60 (> 60)
[2020-10-31] MEDS: Nicotine 14 MG PATCH.TD24 TD SCH (08:03)
[2020-10-31] MEDS: Metoprolol 100 MG TABLET GTUBE SCH ×2 (08:04→20:53)
[2020-10-31] MEDS: Aspirin 81 MG TAB.CHEW GTUBE SCH (08:08)
[2020-10-31] MEDS: Lactobacillus 1 EACH CAP.SPRINK GTUBE SCH ×2 (08:08→20:53)
[2020-10-31] MEDS: amLODIPine 5 MG TABLET GTUBE SCH (08:08)
[2020-10-31] MEDS: *HR* Rivaroxaban 10 MG TABLET GTUBE SCH (08:10)
[2020-10-31] MEDS: Budesonide Neb 0.5 MG/2 ML IH SCH ×2 (09:00→21:53)
[2020-11-01] MEDS: Phenytoin Oral Susp 100 MG/4 ML UDC GTUBE SCH ×4 (05:49→21:34)
[2020-11-01 06:52] LABS: Basophils % 0.3 %; Eosinophils # 0.3 K/mcL (0.0-0.6); Eosinophils % 4.6 %; Hematocrit 35.5 % (37.5-50.1); Hemoglobin 11.5 g/dL (12.9-16.9); Immature Granulocytes % 0.6 % (0-4); Lymphocytes # 1.2 K/mcL (0.6-4.6); Lymphocytes % 17.2 %; Mean Corpuscular HGB Conc 32.4 g/dL (31.6-35.5); Mean Corpuscular Hemoglobin 30.4 pg (28.0-33.3); Mean Corpuscular Volume 93.9 fL (83.0-100.0); Mean Platelet Volume 10.3 fL (9.4-12.4); Monocytes # 0.7 K/mcL (0.0-1.3); Monocytes % 9.9 %; Neutrophils # 4.7 K/mcL (1.6-8.9); Platelet Count 295 K/mcL (140-400); Red Blood Count 3.78 M/mcL (4.19-5.50); Red Cell Distribution Width 15.4 % (11.5-14.5); Segmented Neutrophils % 67.4 %
[2020-11-01 07:22] LABS: BUN/Creatinine Ratio 25 (6-26); Blood Urea Nitrogen 15 mg/dL (8-23); Calcium 7.9 mg/dL (8.6-10.3); Carbon Dioxide 23 mEq/L (23-29); Chloride 108 mEq/L (98-107); Glucose 99 mg/dL (70-105); Magnesium 1.8 mg/dL (1.6-2.6); Osmolality,Calculated 281 (280-300); Potassium 3.8 mEq/L (3.5-5.1); Sodium 135 mEq/L (136-145); eGFR For African Americans > 60 (> 60); eGFR For Non-African Americans > 60 (> 60)
[2020-11-01] MEDS: *HR* Rivaroxaban 10 MG TABLET GTUBE SCH (08:10)
[2020-11-01] MEDS: Nicotine 14 MG PATCH.TD24 TD SCH (08:48)
[2020-11-01] MEDS: amLODIPine 5 MG TABLET GTUBE SCH (08:49)
[2020-11-01] MEDS: Metoprolol 100 MG TABLET GTUBE SCH ×3 (08:49→21:32)
[2020-11-01] MEDS: Aspirin 81 MG TAB.CHEW GTUBE SCH (08:49)
[2020-11-01] MEDS: Lactobacillus 1 EACH CAP.SPRINK GTUBE SCH ×3 (08:50→21:32)
[2020-11-01] MEDS: Budesonide Neb 0.5 MG/2 ML IH SCH ×2 (10:26→22:25)
[2020-11-01] MEDS: Nystatin Cream 15 GM TUBE TP SCH (21:31)
[2020-11-01] MEDS: Nystatin POWDER 30 GM BOTTLE TP SCH (21:31)
[2020-11-02] MEDS: Phenytoin Oral Susp 100 MG/4 ML UDC GTUBE SCH ×3 (06:04→22:02)
[2020-11-02] MEDS: Albuterol 2.5 MG/3 ML NEBULIZER IH PRN (08:38)
[2020-11-02] MEDS: Budesonide Neb 0.5 MG/2 ML IH SCH ×2 (08:38→20:43)
[2020-11-02] MEDS: Lactobacillus 1 EACH CAP.SPRINK GTUBE SCH ×2 (08:53→20:11)
[2020-11-02] MEDS: Metoprolol 100 MG TABLET GTUBE SCH ×2 (08:53→20:12)
[2020-11-02] MEDS: Nicotine 14 MG PATCH.TD24 TD SCH (08:53)
[2020-11-02] MEDS: amLODIPine 5 MG TABLET GTUBE SCH (08:53)
[2020-11-02] MEDS: Aspirin 81 MG TAB.CHEW GTUBE SCH (08:53)
[2020-11-02] MEDS: Nystatin Cream 15 GM TUBE TP SCH ×3 (08:54→20:12)
[2020-11-02] MEDS: Nystatin POWDER 30 GM BOTTLE TP SCH ×3 (08:54→20:11)
[2020-11-02] MEDS: *HR* Rivaroxaban 10 MG TABLET GTUBE SCH (12:57)
[2020-11-02 14:15] VITALS: BP 151/86
== END 2020-11-02 22:28 | DRG 207 ==
LOC: SUATTDRO 12:44 → ICNU 12:44 → 3ANU 10-23 14:46
PROVIDERS: ADMIT Family Medicine; ATTEND Internal Medicine